=== PATIENT | female | born 1935 | race Caucasian/White ===

== ENCOUNTER → 2017-01-01 | Outpatient (CLI) | payer MEDICARE, OTHER ==
[~2017-01-01] MED LIST: CHOL200047 PO; LEVO100T4 PO; MULT-37 PO; ONDA4TAB4 PO; OXYC1TAB8 PO; VITA1TAB21 PO
== END ==
LOC: WC.BC 14:45
DX: Z12.31 Encounter for screening mammogram for malignant neoplasm of breast (principal); Z80.3 Family history of malignant neoplasm of breast
CPT/HCPCS: 77063; G0202